=== PATIENT | male | born 1990 | race African-American/Black ===

== ENCOUNTER 2018-03-03 01:16 | Emergency (ER) | payer SELFPAY ==
[~2018-03-03] VITALS: Ht 167.6 cm; Wt 77.1 kg
--- OUTSIDE RECORDS SUMMARY | 2018-03-03 01:23 | XMS REPORT ---
Author Author JESÚS THOMAS Organization [facility] Address [address] [place] [address] Care Team Providers Care Grill Prep Cook Name Role Phone JESÚS THOMAS Unavailable PROBLEMS Unknown Problems ALLERGIES No Known Allergies ENCOUNTERS Encounter Location Date Diagnosis [facility] [address] [facility] [id number] [address] Aug, Acute non-recurrent maxillary sinusitis J01.00 IMMUNIZATIONS Vaccine Route Administration Date Status DEXAMETHASONE 4MG/ML (PER 1 MG) IM Intramuscular August 28, 2017 Administered DEPO MEDROL 40 MG/ML IM Intramuscular August 28, 2017 Administered SOCIAL HISTORY Never Assessed REASON FOR VISIT head congestion, denies cough, sinus pressure. been sick for a month. [email or web address] PLAN OF CARE Activity Details Follow Up prn Reason: VITAL SIGNS Height 68 in 2017-08-28 Weight 183.2 lbs 2017-08-28 Temperature 98.0 degrees Fahrenheit 2017-08-28 Heart Rate 72 bpm 2017-08-28 Respiratory Rate 18 2017-08-28 BMI 27.85 kg/m2 2017-08-28 Blood pressure systolic 116 mmHg 2017-08-28 Blood pressure diastolic 72 mmHg 2017-08-28 MEDICATIONS Medication Instructions Dosage Frequency Start Date End Date Duration Status Zyrtec Allergy 10 MG Orally Once a day 1 tablet 24h Aug, Sep, 30 day(s) Active Augmentin 875-125 MG Orally every 12 hrs 1 tablet 12h Aug, Sep, 10 day(s) Active Flonase 50 MCG/ACT Nasally Once a day 1 spray in each nostril 24h Aug, 30 day(s) Active RESULTS No Results PROCEDURES Procedure Date Ordered Result Body Site DEXAMETHASONE 4MG/ML (PER 1 MG) August 28, 2017 THER/PROPH/DIAG INJ, SC/IM August 28, 2017 DEPO MEDROL 40 MG/ML August 28, 2017 INSTRUCTIONS MEDICATIONS ADMINISTERED No Known Medications
[2018-03-03 04:02] LABS: BILIRUBIN,URINE NEGATIVE (NEGATIVE); CLARITY,URINE VERY CLOUDY; COLOR,URINE YELLOW; GLUCOSE, URINE (UA) NEGATIVE (NEGATIVE); KETONES,URINE NEGATIVE (NEGATIVE); LEUKOCYTE ESTERASE ,URINE NEGATIVE (NEGATIVE); NITRITE,URINE NEGATIVE (NEGATIVE); PH,URINE 8 (5-9); PROTEIN,URINE NEGATIVE (NEGATIVE); UROBILINOGEN,URINE 1 MG/DL (NORMAL)
[2018-03-03 04:10] LABS: BACTERIA,URINE TRACE /HPF; SQUAMOUS EPITHELIAL CELL,UR RARE /HPF
[2018-03-03 04:11] LABS: AMORPHOUS SEDIMENT,UR LARGE AMOR PHOSPHATE /LPF
[2018-03-03 04:11] LABS: BASOPHILS % (AUTO) 1 % (0-10); EOSINOPHILS # (AUTO) 0.4 10^3/uL (0.0-0.3); EOSINOPHILS % (AUTO) 5 % (0-10); HEMATOCRIT 40 % (40-54); HEMOGLOBIN 14.1 G/DL (13.3-17.7); LYMPHOCYTES # (AUTO) 3.2 X 10^3 (1.0-4.0); LYMPHOCYTES % (AUTO) 49 % (12-44); MEAN CORPUSCULAR HEMOGLOBIN 30 PG (25-34); MEAN CORPUSCULAR HGB CONC 36 G/DL (32-36); MEAN CORPUSCULAR VOLUME 85 FL (80-99); MEAN PLATELET VOLUME 11.3 FL (7.4-10.4); MONOCYTES # (AUTO) 0.6 X 10^3 (0.0-1.0); MONOCYTES % (AUTO) 9 % (0-12); NEUTROPHILS # (AUTO) 2.4 X 10^3 (1.8-7.8); NEUTROPHILS % (AUTO) 36 % (42-75); PLATELET COUNT 196 10^3/uL (130-400); RED BLOOD COUNT 4.69 10^6/uL (4.35-5.85); RED CELL DISTRIBUTION WIDTH 13.2 % (10.0-14.5); WHITE BLOOD COUNT 6.5 10^3/uL (4.3-11.0)
[2018-03-03 04:31] LABS: ALANINE AMINOTRANSFERASE 29 U/L (0-55); ALBUMIN 4.5 GM/DL (3.2-4.5); ALKALINE PHOSPHATASE 53 U/L (40-136); BUN/CREATININE RATIO 9; CALCIUM 9.3 MG/DL (8.5-10.1); CARBON DIOXIDE 25 MMOL/L (21-32); CHLORIDE 106 MMOL/L (98-107); CREATININE SERUM 1.05 MG/DL (0.60-1.30); GFR ESTIMATED > 60; GLUCOSE 78 MG/DL (70-105); POTASSIUM 3.5 MMOL/L (3.6-5.0); SODIUM 141 MMOL/L (135-145); TOTAL PROTEIN 7.4 GM/DL (6.4-8.2)
[2018-03-03 04:51] LABS: TSH (THYROID ANALYZER) 2.31 UIU/ML (0.35-4.94)
--- NOTE | 2018-03-03 04:56 | ED General ---
General Chief Complaint: General Problems/Pain Stated Complaint: TIRED,DIZZY Nursing Triage Note: AMBULATORY TO ED WITH C/O FEELING TIRED/FATIGUED FOR A WEEK WITH CHILLS. PRESENTED TO ER BECAUSE HE "COULD NOT GET TO SLEEP AND WAS SHIVERING". DENIES COUGH, SORE THROAT, BUT DOES HAVE RUNNY NOSE AND HEADACHE. Nursing Sepsis Screen: No Definite Risk Source of Information: Patient History of Present Illness Date Seen by Provider: Mar 03, 2018 Time Seen by Provider: 09:25 Initial Comments PT ARRIVES VIA POV FROM HOME STATES SINCE YESTERDAY HE HAS BEEN FEELING TIRED, NO ENERGY, DOESN'T FEEL LIKE DOING ANYTHING C/O FEELING COLD ALL THE TIME AND TONIGHT WAS SHIVERING AND COULDN'T SLEEP BECAUSE HE WAS COLD HAS HAD A SLIGHT RUNNY NOSE WITH CLEAR DRAINAGE C/O SLIGHT HEADACHE NO COUGH NO BODY ACHES NO NECK PAIN OR STIFFNESS NO SHORTNESS OF BREATH NO SORE THROAT NO OTHER SYMPTOMS NO HISTORY OF SIMILAR NO KNOWN SICK CONTACTS. TOOK 4 IBUPROFEN AT 2200 TONIGHT, OTHERWISE HAS NOT TAKEN ANYTHING FOR SYMPTOMS NO PCP--STATES HE LIVES HERE AND WORKS IN [place] ALL WEEK. Allergies and Home Medications Allergies Coded Allergies: No Known Drug Allergies (Unverified , 03/03/18) Home Medications No Active Prescriptions or Reported Meds Patient Home Medication List Home Medication List Reviewed: Yes Review of Systems Review of Systems Constitutional: see HPI, chills; No diaphoresis, No dizziness, No fever; malaise EENTM: nose congestion; No ear pain, No blurred vision, No eye pain, No throat pain Respiratory: no symptoms reported; No cough, No short of breath Cardiovascular: no symptoms reported; No chest pain, No edema, No palpitations , No syncope, No vascular heart diseas Gastrointestinal: no symptoms reported; No abdominal pain, No diarrhea, No nausea, No vomiting Genitourinary: no symptoms reported Musculoskeletal: no symptoms reported; No back pain, No muscle pain, No muscle stiffness, No neck pain Skin: no symptoms reported Psychiatric/Neurological: See HPI, Headache; Denies Numbness, Denies Paresthesia, Denies Seizure, Denies Tingling, Denies Weakness Hematologic/Lymphatic: No Symptoms Reported Immunological/Allergic: no symptoms reported Past Qrwjvzu-Ujizex-Uhpkoi Hx Patient Social History Alcohol Use: Occasionally Uses Recreational Drug Use: No Smoking Status: Never a Smoker 2nd Hand Smoke Exposure: No Recent Foreign Travel: No Contact w/Someone Who Travel: No Recent Infectious Disease Expo: No Recent Hopitalizations: No Immunizations Up To Date Tetanus Booster (TDap): Unknown Seasonal Allergies Seasonal Allergies: No Past Medical History Surgeries: No Respiratory: No Cardiac: No Neurological: No Genitourinary: No Gastrointestinal: No Musculoskeletal: No Endocrine: No HEENT: No Cancer: No Psychosocial: No Integumentary: No Blood Disorders: No Physical Exam Vital Signs Vital Signs - First Documented 03/03/18 02:49 Temp 98.4 Pulse 89 Resp 17 B/P (MAP) 143/94 (110) Capillary Refill : Less Than 3 Seconds Height, Weight, BMI Height: 5'6.00" Weight: 170lbs. oz. 77.459163xr; BMI Method:Stated General Appearance: No Apparent Distress, WD/WN HEENT: PERRL/EOMI, TMs Normal, Normal ENT Inspection, Pharynx Normal, Moist Mucous Membranes Neck: Full Range of Motion, Normal Inspection, Non Tender, Supple; No Lymphadenopathy (L), No Lymphadenopathy (R), No Tender Lateral, No Tender Midline, No Thyromegaly Respiratory: Normal Breath Sounds, No Accessory Muscle Use, No Respiratory Distress Cardiovascular: Regular Rate, Rhythm, No Edema, No JVD, No Murmur, Normal Peripheral Pulses Gastrointestinal: Normal Bowel Sounds, No Organomegaly, No Pulsatile Mass, Non Tender, Soft Back: Normal Inspection, No CVA Tenderness, No Vertebral Tenderness Extremity: Normal Capillary Refill, Normal Inspection, Normal Range of Motion, Non Tender, No Calf Tenderness, No Pedal Edema Neurologic/Psychiatric: Alert, Oriented x3, No Motor/Sensory Deficits, Normal Mood/Affect, marriage performer II-XII Norm as Tested Skin: Normal Color (PT IS BLACK), Warm/Dry Progress/Results/Core Measures Suspected Sepsis Recent Fever Within 48 Hours: Yes Infection Criteria Present: Suspected New Infection New/Unexplained Altered Menta: No Sepsis Screen: No Definite Risk SIRS Temperature:98.4 Pulse: 89 Respiratory Rate: 17 Laboratory Tests 03/03/18 04:00: White Blood Count 6.5 Blood Pressure 143 /94 Mean: 110 Laboratory Tests 03/03/18 04:00: Creatinine 1.05, Platelet Count 196, Total Bilirubin 1.0 Results/Orders Lab Results Laboratory Tests Test 03/03/18 03:55 03/03/18 04:00 Range/Units Urine Color YELLOW Urine Clarity VERY CLOUDY H Urine pH 8 5-9 Urine Specific [place] 1.015 L 1.016-1.022 Urine Protein NEGATIVE NEGATIVE Urine Glucose (UA) NEGATIVE NEGATIVE Urine Ketones NEGATIVE NEGATIVE Urine Nitrite NEGATIVE NEGATIVE Urine Bilirubin NEGATIVE NEGATIVE Urine Urobilinogen 1 NORMAL MG/DL Urine Leukocyte Esterase NEGATIVE NEGATIVE Urine RBC (Auto) NEGATIVE NEGATIVE Urine RBC NONE /HPF Urine WBC NONE /HPF Urine Squamous Epithelial Cells RARE /HPF Urine Crystals PRESENT H /LPF Urine Amorphous Sediment LARGE RADHA PHOSPHATE H /LPF Urine Bacteria TRACE /HPF Urine Casts NONE /LPF Urine Mucus NEGATIVE /LPF Urine Culture Indicated NO White Blood Count 6.5 4.3-11.0 10^3/uL Red Blood Count 4.69 4.35-5.85 10^6/uL Hemoglobin 14.1 13.3-17.7 G/DL Hematocrit 40 40-54 % Mean Corpuscular Volume 85 80-99 FL Mean Corpuscular Hemoglobin 30 25-34 PG Mean Corpuscular Hemoglobin Concent 36 32-36 G/DL Red Cell Distribution Width 13.2 10.0-14.5 % Platelet Count 196 130-400 10^3/uL Mean Platelet Volume 11.3 H 7.4-10.4 FL Neutrophils (%) (Auto) 36 L 42-75 % Lymphocytes (%) (Auto) 49 H 12-44 % Monocytes (%) (Auto) 9 0-12 % Eosinophils (%) (Auto) 5 0-10 % Basophils (%) (Auto) 1 0-10 % Neutrophils # (Auto) 2.4 1.8-7.8 X 10^3 Lymphocytes # (Auto) 3.2 1.0-4.0 X 10^3 Monocytes # (Auto) 0.6 0.0-1.0 X 10^3 Eosinophils # (Auto) 0.4 H 0.0-0.3 10^3/uL Basophils # (Auto) 0.0 0.0-0.1 10^3/uL Sodium Level 141 135-145 MMOL/L Potassium Level 3.5 L 3.6-5.0 MMOL/L Chloride Level 106 98-107 MMOL/L Carbon Dioxide Level 25 21-32 MMOL/L Anion Gap 10 5-14 MMOL/L Blood Urea Nitrogen 9 7-18 MG/DL Creatinine 1.05 0.60-1.30 MG/DL Estimat Glomerular Filtration Rate > 60 BUN/Creatinine Ratio 9 Glucose Level 78 70-105 MG/DL Calcium Level 9.3 8.5-10.1 MG/DL Corrected Calcium 8.9 8.5-10.1 MG/DL Total Bilirubin 1.0 0.1-1.0 MG/DL Aspartate Amino Transf (AST/SGOT) 27 5-34 U/L Alanine Aminotransferase (ALT/SGPT) 29 0-55 U/L Alkaline Phosphatase 53 40-136 U/L Total Protein 7.4 6.4-8.2 GM/DL Albumin 4.5 3.2-4.5 GM/DL TSH [place] Testing 2.31 0.35-4.94 UIU/ML Monoscreen NEGATIVE NEGATIVE Micro Results Microbiology 03/03/18 Influenza Types A,B Antigen (ARIE) - Final, Complete My Orders Orders - DULCE FELIX DO Influenza A And B Antigens (03/03/18 02:51) Cbc With Automated Diff (03/03/18 03:50) Comprehensive Metabolic Panel (03/03/18 03:50) Monotest (03/03/18 03:50) Thyroid Analyzer (03/03/18 03:50) Ua Culture If Indicated (03/03/18 03:50) Chest Pa/Lat (2 View) (03/03/18 03:50) Vital Signs/I&O 03/03/18 02:49 Temp 98.4 Pulse 89 Resp 17 B/P (MAP) 143/94 (110) Capillary Refill : Less Than 3 Seconds Blood Pressure Mean: 110 Progress Note : Progress Note UNEVENTFUL ER STAY PT RESTED QUIETLY FOR ENTIRE ER STAY Diagnostic Imaging Comments CXR--NO ACUTE PROCESS, PENDING RADIOLOGIST REVIEW Reviewed: Reviewed by Me Departure Impression Primary Impression: Malaise and fatigue Additional Impression: POSSIBLE VIRAL ILLNESS Disposition: 01 HOME, SELF-CARE Condition: Stable Departure-Patient Inst. Referrals: NO,LOCAL PHYSICIAN (PCP) Primary Care Physician Patient Instructions: VIRAL SYNDROME Add. Discharge Instructions: HOME, REST LOTS OF CLEAR LIQUIDS TYLENOL AND MOTRIN NEEDED FOR PAIN OR FEVER FOLLOW UP WITH OF [facility] IN 3-4 DAYS IF NO BETTER All discharge instructions reviewed with patient and/or family. Voiced understanding. Scripts No Active Prescriptions or Reported Meds DULCE FELIX DO Mar 03, 2018 04:56
[2018-03-03 05:02] VITALS: BP 143/94
--- NOTE | 2018-03-03 07:51 | Diagnostic Imaging Report ---
INDICATION: Flu symptoms. PA and lateral views of the chest were obtained. FINDINGS: The heart size, mediastinal configuration, and pulmonary vascularity are within normal limits. There is no pleural effusion, pneumothorax, or pneumonia. The osseous structures are unremarkable. IMPRESSION: No acute cardiopulmonary abnormality. Dictated by: Dictated on workstation # [id number]
== END 2018-03-03 05:03 | disposition home or self-care (01) ==
LOC: ER 01:19
DX: R53.81 Other malaise (principal); R53.83 Other fatigue
CPT/HCPCS: 36415; 71046; 80053; 81000; 84443; 85025; 86308; 87804